=== PATIENT | male | born 1985 ===

== ENCOUNTER 2021-01-11 08:48 | Outpatient (CLI) | payer OTHER | END 2021-01-11 08:49 | disposition home or self-care (01) | LOC: NUCLEAR 08:48 | PROVIDERS: ATTEND Internal Medicine | DX: I20.9 Angina pectoris, unspecified (principal); I10 Essential (primary) hypertension; E78.00 Pure hypercholesterolemia, unspecified | CPT/HCPCS: 78452; 93017; A9500 ==